=== PATIENT | male | born 1985 ===

== ENCOUNTER 2023-07-10 14:54 | Outpatient (AMB) | payer BC, SELFPAY ==
--- NOTE | 2023-07-10 15:00 | HO.SPINEOV ---
Intake Intake Visit Reasons: low back pain Intake Note: Mr. Hanley is here today c/o low back pain. 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 He is a pleasant 37-year-old male who comes in today with a chief complaint of low back pain with radiation into his posterior thighs. He reports this has been ongoing for many years but was recently exacerbated by a snowboarding accident. He states that as a result of his pain he has put on quite a bit of weight which he feels is only contributing to the ongoing persistent pain. His primary care has recently placed him on wegovy in an attempt to manage his weight. He states that his back pain 1st began when he was 16 years old when he got into an accident during wrestling. He also played sports throughout high school and college which continually exacerbated his low back pain. He most recently has been utilizing [id number] medications and Celebrex in order to manage his pain. He states that medications are only modestly helpful. In the past year he reports he has been to physical therapy, home care associate multiple times, acupuncture multiple times, and has had multiple rounds of massage therapy. He feels these these have only provided temporary relief. PMH: PTSD, GERD, deviated nasal septum, oral & genital HSV, bipolar disorder, asthma, hyperlipidemia, seasonal allergies. Social hx: Patient smokes 1/2 ppd. Reports no current substance use, however does disclose Hx of substance use in the past. Medications: Celecoxib, semaglutide, Valacyclovir, Tylenol, acyclovir, escitalopram, loratadine, nicotine patches, omeprazole, trazodone, Latuda, clonidine. Allergies: Seafood. Physical exam: The patient has 5/5 strength in his upper and lower extremities. His reflexes are 2+ intact. He has no sensational deficits. He is able to ambulate well and rises from a seated position without difficulty. (-) bilateral straight leg raise, (-) Abimbola's bilaterally, (-) clonus, (-) Lopez's. Imaging review: MRI of the lumbar spine completed at [facility] shows a mild posterior disc bulge at L5-S1 causing mild-moderate foraminal stenosis bilaterally. There is no significant central canal impingement. Impression: Danielito is a pleasant 37-year-old male comes in today with a chief complaint of low back pain with radiation to his bilateral posterior lower extremities. He states that the radiation of his pain is waxing/waning and comes and goes dependent on how much activity he engages with throughout the day. He reports a long history of low back pain, and states that his pain was manageable for the most part up until a snowboarding accident over the winter. His exam is benign, and his imaging does not show any acute nerve root impingement that would require neurosurgical intervention for symptom relief. I would like to refer Danielito to our colleagues at pain management for evaluation/recommendations regarding L5-S1 injections. I encouraged him to continue with conservative medication management for the time being. I also concur with his primary care that proper weight control would likely help to alleviate much of his pain. Thank you for allowing us to care for your patient. The total time spent with this visit with this patient was 45 minutes reviewing history, physical exam, MRI imaging review, and implementation of treatment plan or further diagnostic testing Deangelo Lewis MD,PhD [facility] Orders: Referrals Pain Management Referral M54.16 - Radiculopathy, lumbar region Coding Level of Care Code New Pt Level 4 (46773) Diagnoses Lumbar radiculopathy M54.16
== END 2023-07-10 15:31 | disposition home or self-care (01) ==
PROVIDERS: PCP Nurse Practitioner Family; Referring Provider Nurse Practitioner Family; Visit Provider Physician Assistant
DX: M54.16 Radiculopathy, lumbar region (principal)
CPT/HCPCS: 99204

== ENCOUNTER → 2023-07-10 14:54 | Outpatient (BNVA) | payer BC, SELFPAY | PROVIDERS: Visit Provider Physician Assistant ==

== ENCOUNTER 2023-08-19 08:12 | Outpatient (AMB) | payer BC, SELFPAY ==
--- NOTE | 2023-08-19 08:16 | MHC.OFFVIS ---
Vital Signs 08/19/23 08:19 Height 6 ft Weight 291 lb BMI 39.5 BP 133/77 Blood Pressure Location Lt brachial Position Sitting Respiration 14 Pulse 90 Pulse Source Pulse Oximeter Pulse Oximetry (%) 97 Oxygen Delivery Method Room Air Intake Visit Reasons: lumbar radiculopathy - eval for JUAN Allergies No Known Allergies Allergy (Verified 08/19/23 08:20) Medication List - Last Reconciled 08/19/23 by Laisha Perez LPN bupropion HCl XL 150 mg PO QAM celecoxib 200 mg PO BID cholecalciferol (vitamin D3) (Vitamin D3) 25 mcg PO QAM clonidine HCl 0.1 mg PO BID PRN lurasidone 60 mg PO QPM omega 4-eft-glu-fish oil 300 mg (120 mg- 180mg)-1,000 mg 1 cap PO QPM omeprazole 20 mg PO DAILY propranolol 20 mg PO TID PRN topiramate 100 mg PO QPM HPI HPI lumbar radiculopathy - eval for JUAN: Details: 37-year-old male who presents today to the office for an evaluation of JUAN Patient presents today with history of lower back with radiation down the right leg. He states the pain is off and on, which has exacerbated after a snowboarding accident. Relates because of the pain and due to weight, it further aggravated the pain. The pain is described as aching and stabbing sensation in the right buttock and leg, it gets worse in the morning and is about 7-8 in intensity, but goes down to 2-3/10 afterwards. He is unable to sleep because of the pain. He has been taking OTC medication and Celebrex, which has been minimally helpful. In the past year, has been to physical therapy, chiropractic, accupuncture and massage therapy, which provided temporary relief. He reports he cannot straighten up his back and states the pain is mostly in the leg, which he thinks is originated in the back. He also has some tingling sensation in the lower part of foot. The patient reports pain in his right leg, hamstring, upper calf muscles, and lower part of the foot, but the pain is mainly localized in the hamstring region. He reports recent triggering event when he was laying on the floor on his side and was tearful when he was trying to get up. He also reports difficult standing up. He reports the pain as cramping and burning sensation. The rates the pain as 3-4/10 today . He feels he has pulled his Hamstring during snowboarding accident. He has similar injury when he was a teenager. He tried 2 rounds of PT in the past with minimal benefit. Review of Systems Const All systems reviewed & are unremarkable except as noted in HPI and below Physical Exam Vital Signs: Last Vital Signs Pulse 90 08/19/23 08:19 Resp 14 08/19/23 08:19 BP 133/77 08/19/23 08:19 Pulse Ox 97 08/19/23 08:19 Oxygen Delivery Method Room Air 08/19/23 08:19 BMI result Body Mass Index 39.5 General: Appears afebrile. Alert and oriented. Mood and affect appropriate. Follows and participates in conversation appropriately. Respiratory effort is unlabored. Able to transition from sit to stand unassisted. Tenderness to palpation overlying the right medial gluteal medius tendon insertion. Tenderness overlying the piriformis muscle. Results Reviewed Results Reviewed: MR SPINE LUMBAR without CONTRAST INDICATION: Sciatica, right-sided. TECHNIQUE: Unenhanced multiplanar, multisequence MR imaging of the lumbar spine. COMPARISON: XR lumbar 05/17/2015. FINDINGS: Normal lumbar alignment is demonstrated. Vertebral heights are well maintained. Bone marrow signal is within normal limits, and no suspicious osseous lesion is identified. Conus medullaris is unremarkable. Paraspinal soft tissues and visualized portions of the abdomen and pelvis are unremarkable. At L1-2 there is no significant disc herniation or protrusion. No central canal or neural foraminal stenosis is demonstrated. At L2-3 there is no significant disc herniation or protrusion. No central canal or neural foraminal stenosis is demonstrated. There is a mild broad-based disc bulge with ligament flavum hypertrophy. At L3-4 there is no significant disc herniation or protrusion. No central canal or neural foraminal stenosis is demonstrated. At L4-5 there is intervertebral disc space narrowing with mild disc desiccation. There is a mild broad-based disc bulge with ligamentum flavum hypertrophy and mild uncovertebral joint hypertrophy. No clinically significant central canal or neuroforaminal stenosis. At L5-S1 there is intervertebral disc space narrowing with mild disc desiccation. There is a mild broad-based disc bulge with ligamentum flavum hypertrophy and uncovertebral joint hypertrophy without clinically significant central canal or neuroforaminal stenosis.. IMPRESSION: 1.Multilevel lumbar spondylosis without focal disc herniation or clinically significant central canal stenosis. 2.No exiting nerve root encroachment seen. Assessment & Plan Assessment & Plan (1) Lumbar radiculopathy: Code(s): M54.16 - Radiculopathy, lumbar region Category: Medical (2) Gluteal tendinitis of right buttock: Code(s): M76.01 - Gluteal tendinitis, right hip Category: Medical (3) Hamstring tendinitis of right thigh: Code(s): M76.891 - Other specified enthesopathies of right lower limb, excluding foot Category: Medical Plan 37-year-old male referred to us for evaluation of right buttock and leg pain. Based on review of MRI, I do not think that his episodic, severe pain in the right buttock and leg is explained by the mild disc degeneration at L5-S1. History is notable for wrestling and level 1 athletics in his younger years, which may have caused injuries to his gluteal and hamstring tendons, which have been exacerbated by a recent snowboarding accident. Lumbar radiculitis is still on the differential, but less likely. I would like to send him back for physical therapy with a focus on the gluteal and hamstring tendons. If this is not helpful, we will order an MRI of his right thigh to assess the tendons. If there is evidence of tendinitis on the MRI, we will consider platelet rich plasma injection to the gluteal and hamstring tendons. If there is no improvement or evidence of gluteal/hamstring tendinitis after rounds of PT and imaging, we can consider a spine source again and evaluate for interventions at that at that point. Perhaps an EMG would be helpful in the future as well. The patient was informed that I suspect the pain is due to gluteal tendon/hamstring issue. He was recommended to restart PT as he has only 2 rounds of PT in the past. I do not recommend any cortisone injection at this time; however, we have discussed about PRP injection. The patient will follow up with me in 4 weeks through tele visit to monitor how he is doing with PT. I will also order an MRI of the gluteal region at that time to see the progression and to decide further treatment options based on MRI results. Follow up in 4 weeks through Televisit. Scribed for Dr. Mercado by Justo Lance, director of graduate medical education, on 08/19/2023. I, Dr. Mercado, have personally reviewed and agree with the information entered by the scribe. Orders: Orders PT Evaluation and Treatment 08/19/23 M76.01 - Gluteal tendinitis, right hip, M76.891 - Other specified enthesopathies of right lower limb, excluding foot Coding Level of Care Code New Pt Level 4 (18090) Diagnoses Lumbar radiculopathy M54.16 Gluteal tendinitis of right buttock M76.01 Hamstring tendinitis of right thigh M76.891
[2023-08-19 08:19] VITALS: BP 133/77; PULSE 90; RESP 14; O2SAT 97; BMI 39.5
== END 2023-08-19 09:01 | disposition home or self-care (01) ==
PROVIDERS: PCP Nurse Practitioner Family; Visit Provider Internal Medicine
DX: M54.16 Radiculopathy, lumbar region (principal); M76.01 Gluteal tendinitis, right hip; M76.891 Other specified enthesopathies of right lower limb, excluding foot
CPT/HCPCS: 99204

== ENCOUNTER → 2023-08-19 08:12 | Outpatient (BNVA) | payer BC, SELFPAY | PROVIDERS: Visit Provider Internal Medicine ==

== ENCOUNTER 2023-09-16 13:57 | Outpatient (AMB) | payer BC, SELFPAY ==
--- NOTE | 2023-09-16 13:46 | MHC.OFFVIS ---
Intake Visit Reasons: 1 MONTH FOLLOW UP Allergies No Known Allergies Allergy (Verified 08/19/23 08:20) HPI HPI 1 MONTH FOLLOW UP: Details: 37-year-old male who presents to the office for a 1-month follow up of right buttock pain. He states his pain has returned back during the last week after improving with a HEP. He is going to the gym and working out to help with the pain. He is scheduled to get an appointment with formal physical therapy, as he missed the last appointment. So, he is currently working out on his own at home. He has been trying to lose weight. Review of Systems Const All systems reviewed & are unremarkable except as noted in HPI and below Physical Exam General: Appears afebrile. Alert and oriented. Mood and affect appropriate. Follows and participates in conversation appropriately. Respiratory effort is unlabored. Able to transition from sit to stand unassisted. Telehealth Telehealth Telehealth Platform: [employer] Location of provider rendering services: practice address Location of patient: address on file Patient Identification confirmed using: Name, : Yes Telehealth method: video Patient verbally consented to treatment: Yes Patient verbally consented to billing insurance company: Yes Patient informed of any privacy concerns related to visit: Yes Minutes spent on Phone/Video with Pt.: 4 Results Reviewed Results Reviewed: MR SPINE LUMBAR without CONTRAST INDICATION: Sciatica, right-sided. TECHNIQUE: Unenhanced multiplanar, multisequence MR imaging of the lumbar spine. COMPARISON: XR lumbar 05/17/2015. FINDINGS: Normal lumbar alignment is demonstrated. Vertebral heights are well maintained. Bone marrow signal is within normal limits, and no suspicious osseous lesion is identified. Conus medullaris is unremarkable. Paraspinal soft tissues and visualized portions of the abdomen and pelvis are unremarkable. At L1-2 there is no significant disc herniation or protrusion. No central canal or neural foraminal stenosis is demonstrated. At L2-3 there is no significant disc herniation or protrusion. No central canal or neural foraminal stenosis is demonstrated. There is a mild broad-based disc bulge with ligament flavum hypertrophy. At L3-4 there is no significant disc herniation or protrusion. No central canal or neural foraminal stenosis is demonstrated. At L4-5 there is intervertebral disc space narrowing with mild disc desiccation. There is a mild broad-based disc bulge with ligamentum flavum hypertrophy and mild uncovertebral joint hypertrophy. No clinically significant central canal or neuroforaminal stenosis. At L5-S1 there is intervertebral disc space narrowing with mild disc desiccation. There is a mild broad-based disc bulge with ligamentum flavum hypertrophy and uncovertebral joint hypertrophy without clinically significant central canal or neuroforaminal stenosis.. IMPRESSION: 1.Multilevel lumbar spondylosis without focal disc herniation or clinically significant central canal stenosis. 2.No exiting nerve root encroachment seen. Assessment & Plan Assessment & Plan (1) Hamstring tendinitis of right thigh: Code(s): M76.891 - Other specified enthesopathies of right lower limb, excluding foot Category: Medical (2) Gluteal tendinitis of right buttock: Code(s): M76.01 - Gluteal tendinitis, right hip Category: Medical Plan Patient will touch base with us in 4-6 weeks to update on response to formal PT before considering MR imaging of the femur. Scribed for Dr. Mercado by Justo Lance, medical technologist, on 09/16/2023. I, Dr. Mercado, have personally reviewed and agree with the information entered by the scribe. Coding Level of Care Code Tele Est Pt Level 3 (87132) Diagnoses Hamstring tendinitis of right thigh M76.891 Gluteal tendinitis of right buttock M76.01
== END 2023-09-16 14:06 | disposition home or self-care (01) ==
LOC: HO.PMC 13:57
PROVIDERS: PCP Nurse Practitioner Family; Visit Provider Internal Medicine
DX: M76.891 Other specified enthesopathies of right lower limb, excluding foot (principal); M76.01 Gluteal tendinitis, right hip
CPT/HCPCS: 99213

== ENCOUNTER → 2023-09-16 13:57 | Outpatient (BNVA) | payer BC, SELFPAY | PROVIDERS: PCP Nurse Practitioner Family; Visit Provider Internal Medicine ==